=== PATIENT | male | born 1965 | race African-American/Black ===

== ENCOUNTER 2018-06-07 16:51 | Emergency (ER) | payer MEDICAID ==
[~2018-06-07] VITALS: Ht 182.9 cm; Wt 96.0 kg
[2018-06-07] MEDS ORDERED: SODIUM CHLORIDE 0.9% 1,000 ML IV ONE (17:12)
[2018-06-07] MEDS ORDERED: LEVETIRACETAM 500MG PREMIX 100 ML IV ONE (17:15)
[2018-06-07 19:10] LABS: BASOPHILS % 0.5 % (0.0-2.0); EOSINOPHILS % 3.5 % (0.0-5.0); HEMATOCRIT. 38.5 % (42.0-52.0); HEMOGLOBIN. 12.9 g/dL (14.0-18.0); LYMPHOCYTES % 16.1 % (20.0-50.0); MEAN CORPUSCULAR HEMOGLOBIN 30.3 pg (28.0-32.0); MEAN CORPUSCULAR VOLUME 90.7 fL (80.0-94.0); MEAN PLATELET VOLUME 7.6 fl (7.4-10.4); MONOCYTES % 7.4 % (2.0-8.0); NEUTROPHILS % 72.5 % (40.0-76.0); PLATELET 262 x1000/uL (130-400); RED BLOOD CELL COUNT 4.25 mill/uL (4.7-6.1); RED CELL DISTRIBUTION WIDTH 15.1 % (11.6-14.6)
[2018-06-07 19:16] LABS: CHLORIDE 105 mEq/L (98-107)
[2018-06-07 19:19] LABS: PROTHROMBIN TIME 10.3 sec (9.1-11.1)
[2018-06-07 19:20] LABS: ETHANOL BLOOD < 10 mg/dL
[2018-06-07] MEDS ORDERED: WARFARIN SODIUM 7.5MG TABLET PO ONE (21:15)
[2018-06-07] MEDS ORDERED: ENOXAPARIN 100MG/ML SYR SUBCUT ONE (21:15)
[2018-06-07 21:37] VITALS: BP 103/58
== END 2018-06-07 22:25 | disposition home or self-care (01) ==
LOC: ER 16:51
DX: G93.40 Encephalopathy, unspecified (principal); G40.909 Epilepsy, unspecified, not intractable, without status epilepticus; I10 Essential (primary) hypertension; Z86.73 Personal history of transient ischemic attack (TIA), and cerebral infarction without residual deficits
CPT/HCPCS: 36415; 70450; 71045; 73130; 80053; 85025; 85610; 93005; 96365; 96366; 96372; 99284; G0482; J1650; J1953; J7030

== ENCOUNTER 2018-07-09 18:10 | Emergency (ER) | payer MEDICAID ==
[~2018-07-09] VITALS: Ht 177.8 cm; Wt 75.0 kg
[2018-07-10 01:58] VITALS: BP 132/83
== END 2018-07-10 02:01 | disposition home or self-care (01) ==
LOC: ER 23:32
DX: M79.89 Other specified soft tissue disorders (principal); E11.9 Type 2 diabetes mellitus without complications; I10 Essential (primary) hypertension; I25.2 Old myocardial infarction; F17.200 Nicotine dependence, unspecified, uncomplicated; Z86.73 Personal history of transient ischemic attack (TIA), and cerebral infarction without residual deficits; Z43.1 Encounter for attention to gastrostomy
CPT/HCPCS: 99283; Z7610

== ENCOUNTER 2019-07-11 10:01 | Emergency (ER) | payer MEDICAID ==
[~2019-07-11] VITALS: Ht 180.3 cm; Wt 94.0 kg
[2019-07-11] MEDS ORDERED: SODIUM CHLORIDE 0.9% 1,000 ML IV ONE (10:29)
[2019-07-11] MEDS ORDERED: METOCLOPRAMIDE HCL 10MG/2ML VIAL IV ONE (10:30)
[2019-07-11 10:54] LABS: EOSINOPHILS % 10.6 % (0.0-5.0); HEMATOCRIT. 51.6 % (42.0-52.0); HEMOGLOBIN. 17.2 g/dL (14.0-18.0); MEAN CORPUSCULAR HEMOGLOBIN 29.9 pg (28.0-32.0); MEAN CORPUSCULAR VOLUME 89.3 fL (80.0-94.0); MEAN PLATELET VOLUME 7.3 fl (7.4-10.4); MONOCYTES % 5.6 % (2.0-8.0); NEUTROPHILS % 55.8 % (40.0-76.0); PLATELET 234 x1000/uL (130-400); RED BLOOD CELL COUNT 5.78 mill/uL (4.7-6.1); RED CELL DISTRIBUTION WIDTH 15.5 % (11.6-14.6)
[2019-07-11 12:06] LABS: CHLORIDE 111 mEq/L (98-107)
[2019-07-11 12:25] LABS: CARBAMAZEPINE < 0.5 ug/mL (4-12)
[2019-07-11 13:54] VITALS: BP 133/65
== END 2019-07-11 13:58 | disposition home or self-care (01) ==
LOC: ER 10:01
DX: G40.909 Epilepsy, unspecified, not intractable, without status epilepticus (principal); M24.549 Contracture, unspecified hand; R51 Headache; I11.0 Hypertensive heart disease with heart failure; I50.9 Heart failure, unspecified; I25.2 Old myocardial infarction; I25.110 Atherosclerotic heart disease of native coronary artery with unstable angina pectoris; E11.9 Type 2 diabetes mellitus without complications; Z93.1 Gastrostomy status; Z86.73 Personal history of transient ischemic attack (TIA), and cerebral infarction without residual deficits; Z98.890 Other specified postprocedural states; Z87.891 Personal history of nicotine dependence
CPT/HCPCS: 36415; 70450; 80053; 80156; 85025; 93005; 99284; J7030

== ENCOUNTER 2020-03-29 12:58 | Emergency (ER) | payer MEDICAID ==
[~2020-03-29] VITALS: Ht 172.7 cm; Wt 82.0 kg
[~2020-03-29 12:58] MED LIST: CARB200T6 PO; CLOP75TA15 PO; LIP40 PO
[2020-03-29 15:11] LABS: CHLORIDE 107 mEq/L (98-107)
[2020-03-29 15:13] LABS: PROTHROMBIN TIME 10.4 sec (9.6-11.0)
[2020-03-29 15:19] LABS: CLARITY URINE CLEAR (CLEAR); COLOR URINE YELLOW (YELLOW); KETONES URINE NEGATIVE (NEGATIVE); LEUKOCYTE ESTERASE URINE NEGATIVE (NEGATIVE); NITRITE URINE NEGATIVE (NEGATIVE); OCCULT BLOOD URINE NEGATIVE (NEGATIVE); PH URINE 7.5 (4.5-8.0); PROTEIN URINE NEGATIVE (NEGATIVE); SPECIFIC GRAVITY URINE 1.014 (1.005-1.030); UROBILINOGEN URINE 0.2 E.U./dL (0.2-1.0)
[2020-03-29 15:20] LABS: BASOPHILS % 0.7 % (0.0-2.0); EOSINOPHILS % 8.1 % (0.0-5.0); HEMATOCRIT. 43.2 % (42.0-52.0); HEMOGLOBIN. 14.5 g/dL (14.0-18.0); LYMPHOCYTES % 32.1 % (20.0-50.0); MEAN CORPUSCULAR HEMOGLOBIN 30.6 pg (28.0-32.0); MEAN CORPUSCULAR VOLUME 90.9 fL (80.0-94.0); MONOCYTES % 6.3 % (2.0-8.0); NEUTROPHILS % 52.8 % (40.0-76.0); PLATELET 248 x1000/uL (130-400); RED BLOOD CELL COUNT 4.75 mill/uL (4.7-6.1); RED CELL DISTRIBUTION WIDTH 15.4 % (11.6-14.6)
[2020-03-29 16:15] VITALS: BP 127/81
[2020-03-29] MEDS ORDERED: IOHEXOL-300 100 ML BOTTLE ONE (17:22)
== END 2020-03-29 18:32 | disposition home or self-care (01) ==
LOC: ER 12:58
DX: R10.9 Unspecified abdominal pain (principal); I69.354 Hemiplegia and hemiparesis following cerebral infarction affecting left non-dominant side; Z93.1 Gastrostomy status
CPT/HCPCS: 36415; 74177; 80053; 81003; 83690; 85025; 85610; 93005; 99285; Q9967

== ENCOUNTER 2021-03-19 18:42 | Emergency (ER) | payer MEDICAID ==
[~2021-03-19] VITALS: Ht 177.8 cm; Wt 80.0 kg
[2021-03-19 18:46] VITALS: BP 122/75
== END 2021-03-19 20:14 | disposition left against medical advice (07) ==
LOC: ER 18:42
DX: Z53.21 Procedure and treatment not carried out due to patient leaving prior to being seen by health care provider (principal)